=== PATIENT | female | born 1945 | race Caucasian/White ===

== ENCOUNTER 2024-02-08 09:29 | Day surgery (SDC) | payer MEDICARE, OTHER ==
[~2024-02-08] VITALS: Ht 162.6 cm; Wt 68.6 kg
[~2024-02-08 09:29] MED LIST: ATOR10 PO; DYAZIDE 37.5-21 EACH PO; IPRATROPIUM BRO15 ML; MECL25 PO; OMEP20ER; ZYRTEC10 M2 PO
[2024-02-08] MEDS ORDERED: Lactated Ringer's 1,000 ML IV ONE ×2 (11:08→11:23)
[2024-02-08] MEDS ORDERED: propofoL 50 ML IV ONE (11:23)
[2024-02-08 12:21] VITALS: BP 123/63
== END 2024-02-08 12:23 | disposition home or self-care (01) ==
LOC: ORSCSDS 09:29
PROVIDERS: Surgery
PROC: 0DB48ZX Excision of Esophagogastric Junction, Via Natural or Artificial Opening Endoscopic, Diagnostic (ICD-10-PCS; principal; 2024-02-08 10:45)
PROC: 0DB78ZX Excision of Stomach, Pylorus, Via Natural or Artificial Opening Endoscopic, Diagnostic (ICD-10-PCS; principal; 2024-02-08 10:45)
DX: K21.9 Gastro-esophageal reflux disease without esophagitis (principal); K29.70 Gastritis, unspecified, without bleeding; K31.7 Polyp of stomach and duodenum; K44.9 Diaphragmatic hernia without obstruction or gangrene; I10 Essential (primary) hypertension; E78.5 Hyperlipidemia, unspecified; Z85.3 Personal history of malignant neoplasm of breast; Z79.899 Other long term (current) drug therapy
CPT/HCPCS: 88305; 88341; 88342; J2704; J7120

== ENCOUNTER 2024-02-28 08:56 | Day surgery (SDC) | payer MEDICARE, OTHER | END 2024-02-28 23:51 | disposition home or self-care (01) | LOC: MOI US 08:56 | DX: C50.811 Malignant neoplasm of overlapping sites of right female breast (principal); Z17.0 Estrogen receptor positive status [ER+]; Z85.3 Personal history of malignant neoplasm of breast; I10 Essential (primary) hypertension; K21.9 Gastro-esophageal reflux disease without esophagitis; E11.9 Type 2 diabetes mellitus without complications; Z88.0 Allergy status to penicillin; Z88.8 Allergy status to other drugs, medicaments and biological substances; Z79.899 Other long term (current) drug therapy | CPT/HCPCS: 19285; 77065; A4648 ==

== ENCOUNTER 2024-03-02 10:02 | Day surgery (SDC) | payer MEDICARE ==
[~2024-03-02] VITALS: Ht 162.6 cm; Wt 68.3 kg
[~2024-03-02 10:02] MED LIST changes: +Lactated Ringer's 1,000 ML IV ONE; +Ropivacaine 0.5% HCL/PF 5 MG/ML 30ML Vial ONE
[2024-03-02] MEDS ORDERED: propofoL 20 ML IV ONE (10:14)
[2024-03-02] MEDS ORDERED: FentaNYL Citrate 50 MCG/ML 2 ML Injection ONE (10:15)
[2024-03-02] MEDS ORDERED: IPRATROPIUM BRO15 ML (10:37)
[2024-03-02] MEDS ORDERED: Lactated Ringer's 1,000 ML IV ONE (10:57)
[2024-03-02] MEDS ORDERED: Clindamycin 600mg in D5W 50 ML IV SCH (11:05)
[2024-03-02] MEDS ORDERED: Ondansetron HCl 2 MG / ML 2ML Vial ONE (11:23)
[2024-03-02] MEDS ORDERED: Dexamethasone Sod Phos 10 MG/ML 1ML VIAL ONE (11:23)
[2024-03-02 12:41] VITALS: BP 128/68
--- NOTE | 2024-03-02 13:42 | NUR ---
03/02/24 1342 Bj Alexandra PT REPORTED TOLERABLE 3/10 PAIN UPON D/C (FLACC 0/10). SHE DENIED NAUSEA, AND EXPRESSED READINESS TO RETURN HOME.
== END 2024-03-02 13:25 | disposition home or self-care (01) ==
LOC: ORSCSDS 10:02
PROVIDERS: Surgery
PROC: 0HBT0ZZ Excision of Right Breast, Open Approach (ICD-10-PCS; principal; 2024-03-02 11:30)
DX: C50.811 Malignant neoplasm of overlapping sites of right female breast (principal); Z17.0 Estrogen receptor positive status [ER+]; Z17.21 Progesterone receptor positive status; Z17.32 Human epidermal growth factor receptor 2 negative status; I10 Essential (primary) hypertension; E78.5 Hyperlipidemia, unspecified; K21.9 Gastro-esophageal reflux disease without esophagitis; F41.9 Anxiety disorder, unspecified; Z79.899 Other long term (current) drug therapy; Z85.3 Personal history of malignant neoplasm of breast
CPT/HCPCS: 76098; 88307; J1100; J2405; J2704; J2795; J3010; J7120